=== PATIENT | male | born 1995 ===

== ENCOUNTER → 2022-09-18 09:11 | Outpatient (CLI) | payer OTHER, SELFPAY ==
--- NOTE | ~2022-09-18 | MR_ITS ---
EXAMINATION: MR knee RT wo con DATE: 09/18/2022 09:49 INDICATION: Right knee pain. TECHNIQUE: Magnetic resonance imaging (MRI) of the right knee was performed without intravenous contr ast. Sequences included axial PD-weighted FS FSE, coronal PD-weighted FSE and PD-weighted FS FSE, sag ittal PD-weighted FSE, and sagittal T2-weighted FS FSE. COMPARISON: None. FINDINGS: Medial compartment: Medial meniscus is normal. There is cartilage surface irregularity of femoral condyle and tibial cond yle. Lateral compartment: Lateral meniscus is normal. Lateral compartment cartilage is normal. Patellofemoral compartment: Patellar cartilage is normal. Trochlear cartilage is normal. Ligaments and tendons: The anterior and posterior cruciate ligaments are normal. Medial collateral ligament and lateral sravanthi ateral ligament complex are normal. There is mild patellar tendinopathy. Fluid: There is a small knee joint effusion. IMPRESSION: 1. Mild chondrosis of medial compartment. 2. Small knee joint effusion. Reviewed, dictated and finalized at location A.
== END ==
PROVIDERS: PCP Family Medicine; Visit Provider Orthopaedic Surgery
DX: M25.461 Effusion, right knee (principal)
CPT/HCPCS: 73721